=== PATIENT | male | born 1935 | race Caucasian/White ===

== ENCOUNTER → 2020-09-02 | Outpatient (CLI) | payer OTHER | LOC: HYPER 08:10 | PROVIDERS: ATTEND Emergency Medicine | DX: L89.623 Pressure ulcer of left heel, stage 3 (principal); L97.812 Non-pressure chronic ulcer of other part of right lower leg with fat layer exposed; L97.822 Non-pressure chronic ulcer of other part of left lower leg with fat layer exposed; S81.801A Unspecified open wound, right lower leg, initial encounter; S81.802A Unspecified open wound, left lower leg, initial encounter; I73.9 Peripheral vascular disease, unspecified; N30.00 Acute cystitis without hematuria; N40.0 Benign prostatic hyperplasia without lower urinary tract symptoms; R26.89 Other abnormalities of gait and mobility; R53.1 Weakness; D69.6 Thrombocytopenia, unspecified; R21 Rash and other nonspecific skin eruption; R60.0 Localized edema; Z89.411 Acquired absence of right great toe; Z87.891 Personal history of nicotine dependence; Z98.49 Cataract extraction status, unspecified eye; M86.8X7 Other osteomyelitis, ankle and foot; X58.XXXA Exposure to other specified factors, initial encounter; Y93.89 Activity, other specified; Y92.89 Other specified places as the place of occurrence of the external cause; Y99.8 Other external cause status ==

== ENCOUNTER → 2020-09-16 | Outpatient (CLI) | payer OTHER | LOC: HYPER 07:52 | PROVIDERS: ATTEND Emergency Medicine | DX: L89.623 Pressure ulcer of left heel, stage 3 (principal); L97.812 Non-pressure chronic ulcer of other part of right lower leg with fat layer exposed; L97.822 Non-pressure chronic ulcer of other part of left lower leg with fat layer exposed; S81.801D Unspecified open wound, right lower leg, subsequent encounter; S81.802D Unspecified open wound, left lower leg, subsequent encounter; L84 Corns and callosities; M86.8X7 Other osteomyelitis, ankle and foot; I73.9 Peripheral vascular disease, unspecified; N30.00 Acute cystitis without hematuria; N40.0 Benign prostatic hyperplasia without lower urinary tract symptoms; R26.89 Other abnormalities of gait and mobility; R53.1 Weakness; D69.6 Thrombocytopenia, unspecified; R21 Rash and other nonspecific skin eruption; R60.0 Localized edema; Z89.411 Acquired absence of right great toe; Z87.891 Personal history of nicotine dependence; Z98.49 Cataract extraction status, unspecified eye; X58.XXXD Exposure to other specified factors, subsequent encounter ==

== ENCOUNTER → 2020-09-16 | Outpatient (CLI) | payer OTHER ==
[~2020-09-16] MED LIST: IBU400 MG PO; MIRALAX119 GM PO
== END ==
LOC: SJCVCIMAG 08:25
PROVIDERS: ATTEND Emergency Medicine
DX: I73.9 Peripheral vascular disease, unspecified (principal); I70.8 Atherosclerosis of other arteries; M79.604 Pain in right leg; M79.605 Pain in left leg; L97.429 Non-pressure chronic ulcer of left heel and midfoot with unspecified severity; N40.0 Benign prostatic hyperplasia without lower urinary tract symptoms; Z79.82 Long term (current) use of aspirin; Z79.899 Other long term (current) drug therapy; Z87.891 Personal history of nicotine dependence

== ENCOUNTER 2020-09-24 10:40 | Observation (INO) | payer OTHER ==
[~2020-09-24] VITALS: Ht 172.7 cm; Wt 68.0 kg
[2020-09-24 11:16] VITALS: BP 146/45
[2020-09-24] MEDS ORDERED: MIRALAX119 GM PO (11:45)
[2020-09-24] MEDS ORDERED: IBU400 MG PO (11:46)
[2020-09-24 12:06] LABS: HEMATOCRIT 34.7 % (42.0-52.0); MCH 29.3 pg (26.0-34.0); MCHC 34.6 g/dL (28.0-37.0); MCV 84.5 fL (80.0-100.0); RBC 4.1 mil/uL (4.50-6.00); RDW 14.4 % (10.5-14.5); WBC 6.7 thou/uL (4.0-11.0)
[2020-09-24 12:16] LABS: CALCIUM 8.6 mg/dL (8.5-10.1); CREATININE 0.8 mg/dL (0.7-1.3); POTASSIUM 3.9 mmol/L (3.5-5.1)
--- NOTE | 2020-09-24 18:19 | NUR ---
PT TO THE UNIT POST PROCEDURE - ORIENTED TO ROOM AND BEDSPACE - PT VSS. GROIN SITE STABLE. KAY DIET AND FLUIDS. P[ATIENT ABLE TO GO HOME ONCE BEDREST IS COMPLETED. DPOA WILL BE HERE TO PICK PATIENT UP.
--- NOTE | 2020-09-24 19:08 | NUR ---
PT VSS REMAINED STABLE - BOUCHRA STABLE DPOA TO THE UNIT - IONSTRUCTION RE HOME MEDS/ CARE AND FOLLOW UP GIVEN TO DPOA - STATED UNDERSTANDING OF INSTRUCTION GIVEN - PT LEFT UNIT VIA WHEELCHAIR - HOME VIA PVT VEHICLE ACCOMPANIED BY NOEL TROY - NO CO'S AT TIME OF D/C
== END 2020-09-24 19:10 | disposition home or self-care (01) ==
LOC: CATH 10:40 → 2N 16:06
PROVIDERS: ADMIT Nuclear Medicine Nuclear Cardiology; ATTEND Nuclear Medicine Nuclear Cardiology
DX: I70.213 Atherosclerosis of native arteries of extremities with intermittent claudication, bilateral legs (principal); L97.429 Non-pressure chronic ulcer of left heel and midfoot with unspecified severity; N40.0 Benign prostatic hyperplasia without lower urinary tract symptoms; I25.10 Atherosclerotic heart disease of native coronary artery without angina pectoris; L97.929 Non-pressure chronic ulcer of unspecified part of left lower leg with unspecified severity; I10 Essential (primary) hypertension; I70.1 Atherosclerosis of renal artery; Z98.890 Other specified postprocedural states; Z87.891 Personal history of nicotine dependence

== ENCOUNTER → 2020-10-07 | Outpatient (CLI) | payer OTHER | LOC: HYPER 07:42 | PROVIDERS: ATTEND Emergency Medicine | DX: S81.801D Unspecified open wound, right lower leg, subsequent encounter (principal); S81.802D Unspecified open wound, left lower leg, subsequent encounter; L97.812 Non-pressure chronic ulcer of other part of right lower leg with fat layer exposed; L97.822 Non-pressure chronic ulcer of other part of left lower leg with fat layer exposed; L89.623 Pressure ulcer of left heel, stage 3; L84 Corns and callosities; M86.8X7 Other osteomyelitis, ankle and foot; I73.9 Peripheral vascular disease, unspecified; N30.00 Acute cystitis without hematuria; N40.0 Benign prostatic hyperplasia without lower urinary tract symptoms; R26.89 Other abnormalities of gait and mobility; R53.1 Weakness; D69.6 Thrombocytopenia, unspecified; R21 Rash and other nonspecific skin eruption; R60.0 Localized edema; Z89.411 Acquired absence of right great toe; Z87.891 Personal history of nicotine dependence; Z98.49 Cataract extraction status, unspecified eye; X58.XXXD Exposure to other specified factors, subsequent encounter ==

== ENCOUNTER → 2020-10-28 | Outpatient (CLI) | payer OTHER | LOC: HYPER 07:41 | PROVIDERS: ATTEND Emergency Medicine | DX: S81.801D Unspecified open wound, right lower leg, subsequent encounter (principal); S81.802D Unspecified open wound, left lower leg, subsequent encounter; L97.812 Non-pressure chronic ulcer of other part of right lower leg with fat layer exposed; L97.822 Non-pressure chronic ulcer of other part of left lower leg with fat layer exposed; L89.623 Pressure ulcer of left heel, stage 3; L84 Corns and callosities; M86.8X7 Other osteomyelitis, ankle and foot; I73.9 Peripheral vascular disease, unspecified; N30.00 Acute cystitis without hematuria; N40.0 Benign prostatic hyperplasia without lower urinary tract symptoms; R26.89 Other abnormalities of gait and mobility; R53.1 Weakness; D69.6 Thrombocytopenia, unspecified; R21 Rash and other nonspecific skin eruption; R60.0 Localized edema; Z89.411 Acquired absence of right great toe; Z87.891 Personal history of nicotine dependence; Z98.49 Cataract extraction status, unspecified eye; X58.XXXD Exposure to other specified factors, subsequent encounter ==

== ENCOUNTER → 2020-11-11 | Outpatient (CLI) | payer OTHER | LOC: HYPER 07:44 | PROVIDERS: ATTEND Emergency Medicine | DX: S81.802D Unspecified open wound, left lower leg, subsequent encounter (principal); S81.801D Unspecified open wound, right lower leg, subsequent encounter; L97.812 Non-pressure chronic ulcer of other part of right lower leg with fat layer exposed; L97.822 Non-pressure chronic ulcer of other part of left lower leg with fat layer exposed; I73.9 Peripheral vascular disease, unspecified; R60.0 Localized edema; N30.00 Acute cystitis without hematuria; R26.89 Other abnormalities of gait and mobility; R53.1 Weakness; D69.6 Thrombocytopenia, unspecified; R21 Rash and other nonspecific skin eruption; N40.0 Benign prostatic hyperplasia without lower urinary tract symptoms; M86.171 Other acute osteomyelitis, right ankle and foot; Z98.890 Other specified postprocedural states; Z87.891 Personal history of nicotine dependence; Z79.82 Long term (current) use of aspirin; Z79.899 Other long term (current) drug therapy; Z98.49 Cataract extraction status, unspecified eye; Z89.411 Acquired absence of right great toe; X58.XXXD Exposure to other specified factors, subsequent encounter ==

== ENCOUNTER → 2020-11-25 | Outpatient (CLI) | payer OTHER | LOC: HYPER 07:56 | PROVIDERS: ATTEND Emergency Medicine | DX: S81.802D Unspecified open wound, left lower leg, subsequent encounter (principal); S81.801D Unspecified open wound, right lower leg, subsequent encounter; L97.812 Non-pressure chronic ulcer of other part of right lower leg with fat layer exposed; L97.822 Non-pressure chronic ulcer of other part of left lower leg with fat layer exposed; L84 Corns and callosities; I73.9 Peripheral vascular disease, unspecified; R60.0 Localized edema; N30.00 Acute cystitis without hematuria; R26.89 Other abnormalities of gait and mobility; R53.1 Weakness; D69.6 Thrombocytopenia, unspecified; R21 Rash and other nonspecific skin eruption; N40.0 Benign prostatic hyperplasia without lower urinary tract symptoms; M86.171 Other acute osteomyelitis, right ankle and foot; Z87.891 Personal history of nicotine dependence; Z79.82 Long term (current) use of aspirin; Z98.49 Cataract extraction status, unspecified eye; Z89.411 Acquired absence of right great toe; X58.XXXD Exposure to other specified factors, subsequent encounter ==

== ENCOUNTER → 2020-12-15 | Outpatient (CLI) | payer OTHER | LOC: HYPER 08:26 | PROVIDERS: ATTEND Emergency Medicine | DX: S81.802D Unspecified open wound, left lower leg, subsequent encounter (principal); S81.801D Unspecified open wound, right lower leg, subsequent encounter; L97.812 Non-pressure chronic ulcer of other part of right lower leg with fat layer exposed; L97.822 Non-pressure chronic ulcer of other part of left lower leg with fat layer exposed; L84 Corns and callosities; I73.9 Peripheral vascular disease, unspecified; R60.0 Localized edema; N30.00 Acute cystitis without hematuria; R26.89 Other abnormalities of gait and mobility; R53.1 Weakness; D69.6 Thrombocytopenia, unspecified; R21 Rash and other nonspecific skin eruption; N40.0 Benign prostatic hyperplasia without lower urinary tract symptoms; M86.171 Other acute osteomyelitis, right ankle and foot; Z87.891 Personal history of nicotine dependence; Z79.82 Long term (current) use of aspirin; Z98.49 Cataract extraction status, unspecified eye; Z89.411 Acquired absence of right great toe; X58.XXXD Exposure to other specified factors, subsequent encounter ==

== ENCOUNTER → 2021-01-05 | Outpatient (CLI) | payer OTHER | LOC: HYPER 15:01 | PROVIDERS: ATTEND Emergency Medicine | DX: L97.812 Non-pressure chronic ulcer of other part of right lower leg with fat layer exposed (principal); L97.822 Non-pressure chronic ulcer of other part of left lower leg with fat layer exposed; S81.802D Unspecified open wound, left lower leg, subsequent encounter; S81.801D Unspecified open wound, right lower leg, subsequent encounter; L89.629 Pressure ulcer of left heel, unspecified stage; I73.9 Peripheral vascular disease, unspecified; R60.0 Localized edema; N30.00 Acute cystitis without hematuria; R26.89 Other abnormalities of gait and mobility; R53.1 Weakness; D69.6 Thrombocytopenia, unspecified; N40.0 Benign prostatic hyperplasia without lower urinary tract symptoms; M86.171 Other acute osteomyelitis, right ankle and foot; Z87.891 Personal history of nicotine dependence; Z79.82 Long term (current) use of aspirin; Z79.899 Other long term (current) drug therapy; Z89.411 Acquired absence of right great toe; Z98.49 Cataract extraction status, unspecified eye; Z89.421 Acquired absence of other right toe(s); X58.XXXD Exposure to other specified factors, subsequent encounter ==

== ENCOUNTER → 2021-01-20 | Outpatient (CLI) | payer OTHER | LOC: HYPER 08:37 | PROVIDERS: ATTEND Emergency Medicine | DX: L97.812 Non-pressure chronic ulcer of other part of right lower leg with fat layer exposed (principal); L97.822 Non-pressure chronic ulcer of other part of left lower leg with fat layer exposed; S81.802D Unspecified open wound, left lower leg, subsequent encounter; S81.801D Unspecified open wound, right lower leg, subsequent encounter; L89.629 Pressure ulcer of left heel, unspecified stage; I73.9 Peripheral vascular disease, unspecified; R60.0 Localized edema; N30.00 Acute cystitis without hematuria; R26.89 Other abnormalities of gait and mobility; R53.1 Weakness; D69.6 Thrombocytopenia, unspecified; N40.0 Benign prostatic hyperplasia without lower urinary tract symptoms; M86.171 Other acute osteomyelitis, right ankle and foot; Z87.891 Personal history of nicotine dependence; Z79.82 Long term (current) use of aspirin; Z89.411 Acquired absence of right great toe; Z98.49 Cataract extraction status, unspecified eye; Z89.421 Acquired absence of other right toe(s); X58.XXXD Exposure to other specified factors, subsequent encounter ==

== ENCOUNTER → 2021-02-10 | Outpatient (CLI) | payer OTHER | LOC: HYPER 08:19 | PROVIDERS: ATTEND Emergency Medicine | DX: L97.812 Non-pressure chronic ulcer of other part of right lower leg with fat layer exposed (principal); L97.822 Non-pressure chronic ulcer of other part of left lower leg with fat layer exposed; S81.802D Unspecified open wound, left lower leg, subsequent encounter; S81.801D Unspecified open wound, right lower leg, subsequent encounter; L89.629 Pressure ulcer of left heel, unspecified stage; I73.9 Peripheral vascular disease, unspecified; R60.0 Localized edema; N30.00 Acute cystitis without hematuria; R26.89 Other abnormalities of gait and mobility; R53.1 Weakness; D69.6 Thrombocytopenia, unspecified; N40.0 Benign prostatic hyperplasia without lower urinary tract symptoms; M86.171 Other acute osteomyelitis, right ankle and foot; Z87.891 Personal history of nicotine dependence; Z79.82 Long term (current) use of aspirin; Z89.411 Acquired absence of right great toe; Z98.49 Cataract extraction status, unspecified eye; Z89.421 Acquired absence of other right toe(s); X58.XXXD Exposure to other specified factors, subsequent encounter ==

== ENCOUNTER → 2021-03-05 | Outpatient (CLI) | payer OTHER | LOC: SJCVCIMAG 01-20 07:50 | PROVIDERS: ATTEND Nuclear Medicine Nuclear Cardiology | DX: I65.23 Occlusion and stenosis of bilateral carotid arteries (principal); I73.9 Peripheral vascular disease, unspecified; R09.89 Other specified symptoms and signs involving the circulatory and respiratory systems; Z95.828 Presence of other vascular implants and grafts ==

== ENCOUNTER → 2021-03-10 | Outpatient (CLI) | payer OTHER | LOC: SJCVC 15:24 | PROVIDERS: ATTEND Nuclear Medicine Nuclear Cardiology | DX: I73.9 Peripheral vascular disease, unspecified (principal); L97.429 Non-pressure chronic ulcer of left heel and midfoot with unspecified severity; I77.9 Disorder of arteries and arterioles, unspecified; Z87.891 Personal history of nicotine dependence; Z79.82 Long term (current) use of aspirin; Z79.899 Other long term (current) drug therapy ==